=== PATIENT | female | born 1970 | race Caucasian/White ===

== ENCOUNTER 2018-11-20 06:46 | Emergency (ER) | payer MEDICAID ==
[~2018-11-20] VITALS: Ht 167.6 cm; Wt 78.6 kg
[2018-11-20 06:50] VITALS: Ht 167.6 cm; Wt 78.6 kg
[2018-11-20] MEDS ORDERED: KETOROLAC 30 MG INJ IV STA (07:02)
[2018-11-20] MEDS ORDERED: SOD CHLORIDE 0.9% 1,000 ML IV STA (07:02)
[2018-11-20] MEDS ORDERED: ONDANSETRON 4 MG INJ IV STA (07:02)
[2018-11-20] MEDS ORDERED: DIPHENHYDRAMINE 50 MG INJ IV STA (07:02)
[2018-11-20] MEDS ORDERED: NITR-58 PO (08:21)
[2018-11-20] MEDS ORDERED: BUTA1CAP38 PO (08:21)
--- NOTE | 2018-11-20 08:42 | ERD ---
ER Documentation Chief Complaint Chief Complaint Complains of severe headache x 3 days HPI 48-year-old female presenting with a headache times 3 days. No fevers. Describes it as a tension in the front and it comes and goes. She states that when it does develop it is very severe. Denies any vomiting. Denies any visual changes. Denies any recent traumatic head injuries. Medical history is diabetes. NKDA. Surgical history hernia repair. Social history denies ROS All systems reviewed and are negative except as per history of present illness. Medications Home Meds Active Scripts Nitrofurantoin Monohyd Macrocr* (Macrobid*) 100 Mg Capsr, 100 MG PO BID for 14 Days, CAP Prov:FLORY BAIG PA-C 11/20/18 Ywikdpllue-Forjcftxahnkg-Lwzjeefd* (Fioricet*) 50-300-40 Mg Capsule, 1 CAP PO Q4H PRN for daily, #15 CAP Prov:FLORY BAIG PA-C 11/20/18 Allergies Allergies: Coded Allergies: No Known Allergy (Unverified , 11/05/11) PMhx/Soc History of Surgery: Yes (hernia repair) Hx Neurological Disorder: No Hx Respiratory Disorders: No Hx Psychiatric Problems: No Hx Miscellaneous Medical Probl: Yes (dm) Hx Alcohol Use: No Hx Substance Use: No Hx Tobacco Use: No FmHx Family History: No diabetes, No coronary disease, No other Physical Exam Vitals Vital Signs Date Temp Pulse Resp B/P (MAP) Pulse Ox O2 O2 Flow FiO2 Time Delivery Rate 11/20/18 97.3 90 20 148/75 98 06:50 (99) Physical Exam GENERAL: The patient is well-appearing, well-nourished, in no acute distress HEENT: Atraumatic. Conjunctivae are pink. Pupils equal, round, and reactive to light. There is no scleral icterus. Tympanic membranes clear bilaterally. Oropharynx clear. CHEST: Clear to auscultation bilaterally. There are no rales, wheezes or rhonchi. HEART: Regular rate and rhythm. No murmurs, clicks, rubs or gallops. NEUROLOGIC: Alert and oriented. Cranial nerves II through XII intact. Motor strength in all 4 extremities with 5 out of 5 strength. Sensation grossly intact. Normal speech and gait. Babinski negative. DTR 2+ throughout. SKIN: There is no apparent rash or petechiae. The skin is warm and dry. Results 24 hrs Laboratory Tests Test 11/20/18 07:00 11/20/18 07:16 Urine Color STRAW Urine Clarity CLEAR Urine pH 5.0 Urine Specific Nunda 1.014 Urine Ketones NEGATIVE mg/dL Urine Nitrite NEGATIVE mg/dL Urine Bilirubin NEGATIVE mg/dL Urine Urobilinogen NEGATIVE mg/dL Urine Leukocyte Esterase TRACE Nusrat/ul Urine Microscopic RBC 1 /HPF Urine Microscopic WBC 9 /HPF Urine Squamous Epithelial Cells FEW /HPF Urine Bacteria FEW /HPF Urine Hemoglobin NEGATIVE mg/dL Urine Glucose 3+ mg/dL Urine Total Protein NEGATIVE mg/dl POC Beta HCG, Qualitative NEGATIVE Current Medications Medications Dose Sig/Cindy Start Time Status Last (Trade) Ordered Route PRN Stop Time Admin Dose Reason Admin Sodium 1,000 ml @ Q1H STAT 11/20/18 DC 11/20/18 Chloride 1,000 mls/hr IV 07:02 11/20/18 07:12 08:01 Ondansetron 4 mg ONCE STAT 11/20/18 DC 11/20/18 HCl (Zofran IV 07:02 11/20/18 07:12 Inj) 07:04 Ketorolac 30 mg ONCE STAT 11/20/18 DC 11/20/18 Tromethamine IV 07:02 11/20/18 07:20 (Toradol) 07:04 25 mg ONCE STAT 11/20/18 DC 11/20/18 Diphenhydrami IV 07:02 11/20/18 07:12 ne HCl 07:04 (Benadryl) Procedures/MDM ER course: 1 L normal saline given ED. Upon reevaluation patient stated her symptoms had dramatically improved. MDM: 48-year-old female presenting with findings consistent with headache. Patient's urine has questionable findings of urinary tract infection so I will treat prophylactically with antibiotics. Patient is discharged with stricter precautions and supportive medications. I have low suspicion for intracranial hemorrhage or neuro deficit. Patient is discharged with stricter precautions. All questions answered at discharge Departure Diagnosis: Primary Impression: UTI (urinary tract infection) Additional Impression: Headache Condition: Stable Patient Instructions: Understanding Urinary Tract Infections (UTIs), Self-Care for Headaches Referrals: COMM[facility]ITY CLIN[facility] YOU HAVE RECEIVED A MEDICAL SCREENING EXAM AND THE RESULTS INDICATE THAT YOU DO NOT HAVE A CONDITION THAT REQUIRES URGENT TREATMENT IN THE EMERGENCY DEPARTMENT. FURTHER EVALUATION AND TREATMENT OF YOUR CONDITION CAN WAIT UNTIL YOU ARE SEEN IN YOUR DOCTORS OFFICE WITHIN THE NEXT 1-2 DAYS. IT IS YOUR RESPONSIBILITY TO MAKE AN APPOINTMENT FOR FOLOW-UP CARE. IF YOU HAVE A PRIMARY DOCTOR --you should call your primary doctor and schedule an appointment IF YOU DO NOT HAVE A PRIMARY DOCTOR YOU CAN CALL OUR PHYSICIAN REFERRAL HOTLINE AT IF YOU CAN NOT AFFORD TO SEE A PHYSICIAN YOU CAN CHOSE FROM THE FOLLOWING [facility] CLINICS [facility] [address] [facility] [address] [facility] [facility] [address] [facility] [address] [facility] [address] [facility] [address] [facility]. [address] Additional Instructions: FOLLOW UP WITH YOUR PRIMARY CARE PHYSICIAN TOMORROW.Return to this facility if you are not improving as expected. FLORY BAIG PA-C Nov 20, 2018 08:42
[2018-11-20 08:44] VITALS: BP 112/64; PULSE 72; RESP 20
== END 2018-11-20 08:45 | disposition home or self-care (01) ==
LOC: FTE 06:46
DX: N39.0 Urinary tract infection, site not specified (principal); E11.9 Type 2 diabetes mellitus without complications
CPT/HCPCS: 81001; 81025; 96374; 96375; J1200; J1885; J2405; J7030; Z7502